=== PATIENT | male | born 1985 | race Caucasian/White ===

== ENCOUNTER 2023-06-03 11:38 | Emergency (ER) | payer MEDICAID, OTHER ==
[~2023-06-03] VITALS: Ht 157.5 cm; Wt 77.0 kg
[2023-06-03 11:42] VITALS: O2SAT 99
[2023-06-03 12:19] LABS: BASOPHILS % 0.7 % (0.0-2.0); EOSINOPHILS % 2.1 % (0.0-5.0); HEMATOCRIT. 45.5 % (42.0-52.0); HEMOGLOBIN. 15.8 g/dL (14.0-18.0); LYMPHOCYTES % 24.4 % (20.0-50.0); MEAN CORPUSCULAR HEMOGLOBIN 31.7 pg (28.0-32.0); MEAN CORPUSCULAR HGB CONC 34.6 g/dL (31.0-37.0); MEAN CORPUSCULAR VOLUME 91.6 fL (80.0-94.0); NEUTROPHILS % 60.8 % (40.0-76.0); PLATELET 236 x1000/uL (130-400); RED BLOOD CELL COUNT 4.97 mill/uL (4.7-6.1); RED CELL DISTRIBUTION WIDTH 12.1 % (11.6-14.6); WHITE BLOOD COUNT 5.3 x1000/uL (4.5-11.0)
[2023-06-03 12:46] LABS: ALANINE AMINOTRANSFERASE 52 IU/L (10-49); ALBUMIN 4.8 g/dL (3.2-4.8); ASPARTATE AMINOTRANSFERASE 37 IU/L (<34); BILIRUBIN TOTAL 0.9 mg/dL (0.1-1.0); CALCIUM 9.7 mg/dL (8.7-10.4); CARBON DIOXIDE 32 mEq/L (21-32); CHLORIDE 99 mEq/L (98-107); CREATININE 1.4 mg/dL (0.6-1.3); GLUCOSE 129 mg/dL (70-105); POTASSIUM 4.1 mEq/L (3.5-5.1); PROTEIN TOTAL 8.4 g/dL (6.0-8.3); SODIUM 137 mEq/L (136-145); UREA NITROGEN BLOOD 21 mg/dL (9-23)
[2023-06-03 14:16] LABS: CLARITY URINE CLEAR (CLEAR); COLOR URINE YELLOW (YELLOW); GLUCOSE URINE 2+ (NEGATIVE); KETONES URINE TRACE (NEGATIVE); LEUKOCYTE ESTERASE URINE NEGATIVE (NEGATIVE); NITRITE URINE NEGATIVE (NEGATIVE); OCCULT BLOOD URINE NEGATIVE (NEGATIVE); PH URINE 6.5 (4.5-8.0); PROTEIN URINE 1+ (NEGATIVE); SPECIFIC GRAVITY URINE 1.021 (1.005-1.030)
[2023-06-03 14:51] LABS: SQUAMOUS EPITHELIAL CELL URINE FEW /lpf (RARE/1+)
[2023-06-03 14:52] LABS: BACTERIA URINE TRACE; RBC URINE 0-2 /hpf (0-2); WBC URINE 0-2 /hpf (0-2)
[2023-06-03 16:55] VITALS: BP 141/95; PULSE 98; RESP 19; TEMP 98.7
== END 2023-06-03 16:56 | disposition home or self-care (01) ==
LOC: ER 11:38
DX: R82.90 Unspecified abnormal findings in urine (principal); I10 Essential (primary) hypertension; E11.9 Type 2 diabetes mellitus without complications
CPT/HCPCS: 36415; 74176; 80053; 81003; 82962; 85025; 99284

== ENCOUNTER 2023-12-16 13:25 | Emergency (ER) | payer MEDICAID, OTHER ==
[~2023-12-16] VITALS: Ht 160 cm; Wt 58.0 kg
[2023-12-16 13:36] VITALS: BP 143/103; PULSE 91; RESP 18; TEMP 98.3; O2SAT 100; O2SAT 98
[2023-12-16] MEDS ORDERED: DOXY-456 PO (16:35)
== END 2023-12-16 17:32 | disposition home or self-care (01) ==
LOC: ER 13:25
DX: L03.032 Cellulitis of left toe (principal)
CPT/HCPCS: 73630; 99283

== ENCOUNTER 2025-02-19 17:50 | Emergency (ER) | payer OTHER, MEDICAID ==
[~2025-02-19] VITALS: Ht 182.9 cm; Wt 89.0 kg
[~2025-02-19 17:50] MED LIST: DOXY-461 PO
[2025-02-19 18:08] VITALS: O2SAT 96
[2025-02-19 20:29] LABS: BASOPHILS % 0.5 % (0.0-2.0); EOSINOPHILS % 1.5 % (0.0-5.0); HEMATOCRIT. 44.7 % (42.0-52.0); HEMOGLOBIN. 15.3 g/dL (14.0-18.0); LYMPHOCYTES % 32.0 % (20.0-50.0); MEAN PLATELET VOLUME 9.1 fl (7.4-10.4); MONOCYTES % 9.8 % (2.0-8.0); NEUTROPHILS % 56.2 % (40.0-76.0); PLATELET 178 x1000/uL (130-400); RED BLOOD CELL COUNT 5.14 mill/uL (4.7-6.1); RED CELL DISTRIBUTION WIDTH 14.0 % (11.6-14.6)
[2025-02-19 20:48] LABS: CREATININE 0.9 mg/dL (0.6-1.3); UREA NITROGEN BLOOD 8 mg/dL (9-23)
[2025-02-19 20:49] LABS: TROPONIN I HIGH SENSITIVITY 26 ng/L (3.0-53)
[2025-02-19 20:50] LABS: ASPARTATE AMINOTRANSFERASE 61 IU/L (<34); BILIRUBIN DIRECT 0.1 mg/dL (<=3.0); BILIRUBIN TOTAL 0.6 mg/dL (0.1-1.0); PROTEIN TOTAL 7.6 g/dL (6.0-8.3); TROPONIN I HIGH SENSITIVITY 26 ng/L (3.0-53)
[2025-02-19] MEDS: SODIUM CHLORIDE 0.9% 1,000 ML IV ONE (21:32)
[2025-02-19 22:23] LABS: TROPONIN I HIGH SENSITIVITY 23 ng/L (3.0-53)
[2025-02-19 22:33] VITALS: BP 155/83; PULSE 0; RESP 16; TEMP 36.8; O2SAT 96
== END 2025-02-19 22:35 | disposition home or self-care (01) ==
LOC: ER 17:50 → CMPBEDREQ 02-20 07:46
DX: R07.89 Other chest pain (principal); E11.65 Type 2 diabetes mellitus with hyperglycemia; R06.02 Shortness of breath; I10 Essential (primary) hypertension
CPT/HCPCS: 99285; 96360; 71045; 80076; 80048; 82010; 83880; 83735; 83930; 85025; 84484; 93005; 36415; J7030